=== PATIENT | male | born 1955 | race Caucasian/White ===

== ENCOUNTER → 2025-07-11 | Outpatient (CLI) | payer MEDICARE, BC | END | disposition home or self-care (01) | LOC: RAD 08:03 | PROVIDERS: ATTEND Internal Medicine | DX: I08.8 Other rheumatic multiple valve diseases (principal); I11.9 Hypertensive heart disease without heart failure; R42 Dizziness and giddiness | CPT/HCPCS: 78452; 93306; 93017; J2785; A9500 ==

== ENCOUNTER → 2025-08-27 | Outpatient (CLI) | payer MEDICARE | END | disposition home or self-care (01) | LOC: RAD 10:18 | PROVIDERS: ATTEND Physician Assistant | DX: R42 Dizziness and giddiness (principal) | CPT/HCPCS: 70553; A9579 ==

== ENCOUNTER → 2025-09-03 | Outpatient (CLI) | payer MEDICARE, BC ==
[2025-09-03 08:56] LABS: CREATININE SERUM 1.08 mg/dL (0.59-1.40); EST GFR, NON-AA 67.4 (>/=60)
== END | disposition home or self-care (01) ==
LOC: RAD 08:05
PROVIDERS: ATTEND Physician Assistant
DX: M47.812 Spondylosis without myelopathy or radiculopathy, cervical region (principal); R42 Dizziness and giddiness; M50.31 Other cervical disc degeneration, high cervical region; M50.321 Other cervical disc degeneration at C4-C5 level; M50.322 Other cervical disc degeneration at C5-C6 level; M50.323 Other cervical disc degeneration at C6-C7 level
CPT/HCPCS: 70498; 36415; 82565; Q9966